=== PATIENT | male | born 1950 | race Caucasian/White ===

== ENCOUNTER 2016-04-26 14:05 | Inpatient (IN) ==
[2016-04-26] MEDS ORDERED: ALUM/MAG/SIMETH/LIDO VISC 1:1 30 ML BOTTLE PO STA (15:12)
[2016-04-26] MEDS ORDERED: ASPIRIN 325 MG TABLET PO STA (15:12)
[2016-04-26] MEDS ORDERED: METOPROLOL TARTRATE 25 MG TABLET PO STA (15:12)
[2016-04-26] MEDS ORDERED: MORPHINE 2 MG/1 ML SYRINGE IV STA (15:12)
[2016-04-26] MEDS ORDERED: NITROGLYCERIN 2% OINT 1 INCH/GM PACK TOP STA (15:12)
[2016-04-26] MEDS ORDERED: ONDANSETRON 4 MG/2 ML VIAL IV STA (15:12)
--- NOTE | 2016-04-26 15:18 | EKG Report ---
Stationary ECG Study [facility] ER Test Date: 04/26/2016 2:12:17 PM Pat Name: KAEL AVILES Department: Room: Gender: M Store Director: : 1950 Requested by: Andre Whitehead Order Number: [id number] Reading MD: BUCK NOEL Intervals [place] Rate: 67 P: 55 OK: 163 QRS: -30 QRSD: 106 T: 31 QT: 380 QTc: 395 Interpretive Statements SINUS RHYTHM MODERATE LEFT AXIS DEVIATION Electronically Signed On 04-26-16 17:31:47 HOUSE MOVER by BUCK NOEL [email or web address]
--- NOTE | 2016-04-26 15:25 | Emergency Department Note ---
IMagda Gwan, am scribing for, and in the presence of, Andre Pop MD 15 :10. IKiesha Charles R, MD, personally performed the services described in this documentation, ascribed by Ebony Man in my presence, and it is both accurate and complete 525 . Arrival - Arrival Chief Complaint: Chest Pain Stated Complaint: tightness in chest/sob/pain in left arm ED Nursing Triage Note: reports tightness in his chest that comes and goes since monday. reports did not feel well yesterday and went to work yesterday and started having worse tightness when he would climb stairs. frank sob or diaphoresis or nausea. has a hx of stents three years ago Mode of Arrival: Ambulatory Limitations: No Limitations Source: Patient, Old Records Reviewed, RN Notes Reviewed Time Seen by Provider: 04/26/16 14:48 - History of Present Illness HPI Narrative: Pt is a 65 y/o male, with a hx of Stent placed 06/2011 at [facility], who presents to the ED with a c/o tightness in his chest with an onset three days ago. Patient stated that his pain as been intermittent since onset but today as he was climbing up and down some stairs his sxs began to worsen prompting his visit to the ED today. Patient stated that he also has had some pain in his arm and that he is followed by the physicians at [facility]. He noted that his discomfort now is similar to what he felt when he received his stent. During exam, pt stated that on a scale of 1-10 he is now having a 2 in pain. No other problems/complaints reported in ED. Onset (ago): day(s) Consistency: intermittent Severity: mild Allergies/Adverse Reactions: Allergies Allergy/AdvReac Type Severity Reaction Status Date / Time No Known Allergies Allergy Unverified 04/26/16 14:16 Home Medications: Home Medications Medication Instructions Recorded Confirmed Type Aspirin [Ecotrin] 325 mg PO DAILY 04/26/16 04/26/16 History Gluc Pina/Chondro Pina A/Vit C/Mn 1 each PO BID 04/26/16 04/26/16 History [Glucosamine Chondroitin Tab] Multivitamin [Multivitamins] 1 each PO DAILY 04/26/16 04/26/16 History Simvastatin 40 mg PO BEDTIME 04/26/16 04/26/16 History Review of System - Review of System 12 point system: reviewed and no additional remarkable complaints except as stated - Review of System Cardiovascular: Present: as per HPI, chest pain (tightness in chest) Musculoskeletal: Present: as per HPI, arm pain (pain in arm) Medical,Surgical,& Family Hx - Surgical History Cardiac Surgeries: Sugical HX of: Cardiac Catheterization (stents 3 years ago) - Social History Smoking Status: Never smoker Exam Vital Signs: Vital Signs Temperature 97.8 F 04/26/16 14:13 Pulse Rate 67 04/26/16 14:46 Respiratory Rate 14 04/26/16 14:46 Blood Pressure 120/67 04/26/16 14:46 O2 Sat by Pulse Oximetry 98 04/26/16 14:46 - General General appearance: alert, in no apparent distress - Head Head exam: Present: atraumatic, normocephalic - Eye Eye exam: Present: normal appearance, PERRL, EOMI - ENT ENT exam: Present: normal exam, normal oropharynx, mucous membranes moist, TM's normal bilaterally, normal external ear exam - Neck Neck exam: Present: full ROM, trachea midline. Absent: tenderness, meningismus , lymphadenopathy, thyromegaly - Chest Chest inspection: Present: symmetric chest wall rise. Absent: tenderness - Respiratory Respiratory exam: Present: normal lung sounds bilaterally. Absent: respiratory distress - Cardiovascular Cardiovascular exam: Present: regular rate, normal rhythm, normal heart sounds. Absent: murmur, rubs, gallop - Abdominal Exam Abdominal exam: Present: soft, normal bowel sounds. Absent: distention, tenderness, guarding - Extremities Exam Extremities exam: Present: full ROM. Absent: tenderness, pedal edema, calf tenderness - Back Exam Back exam: Present: full ROM. Absent: tenderness - Neurological Exam Neurological exam: Present: alert, oriented X3, CN II-XII intact. Absent: motor sensory deficit - Psychiatric Psychiatric exam: Present: normal affect, normal mood - Skin Skin exam: Present: warm, dry, intact, normal color Course - Consultations Consultation #1: Dr. Bowling will admit patient Time: 16:04 Results - Labs CBC & BMP: 04/26/16 14:33 04/26/16 14:33 Lab Results: I have reviewed the patients labs Critical Care Time Critical Care Time: Yes Total Critical Care Time: 60 Disposition Clinical Impression: Chest pain, Elevated troponin, Unstable angina pectoris Case discussed with: patient Disposition: Still a Patient Condition: Stable Time of Disposition: 16:05
[2016-04-26 15:27] LABS: Basophils % 0.5 % (0.0-0.8); Eosinophils # 0.1 10*3/uL (0.0-0.87); Eosinophils % 2.2 % (0.00-10.9); Hematocrit 44.5 VOL% (42.0-52.0); Hemoglobin 15.2 GM/DL (14.0-18.0); Immature Granulocytes % 0.3 %; Immature Granulocytes Absolute 0.02 #; Lymphocytes # 1.4 10*3/uL (1.4-4.0); Mean Corpuscular HGB Conc 34.2 GM/DL (32-36); Mean Corpuscular Hemoglobin 32 PG (27-34); Mean Corpuscular Volume 92.1 FL (87-102); Mean Platelet Volume 9.7 FL (9.6-12.0); Monocytes # 0.5 10*3/uL (0.11-0.8); Monocytes % 8.3 % (1.7-12.7); Neutrophils # 4.4 10*3/uL (1.4-7.4); Neutrophils % 67.7 % (38.7-73.9); Platelet Count 227 10*3/uL (130-400); Red Blood Count 4.83 10*6/uL (3.8-5.5); Red Cell Distribution Width 12.8 % (9.3-17.3); White Blood Count 6.5 10*3/uL (4.5-13.71)
[2016-04-26 15:35] LABS: Bilirubin,Total 0.6 MG/DL (0.2-1.0); Calcium 9.1 MG/DL (8.5-10.1); Magnesium 2.4 MG/DL (1.8-2.4); Osmolality,Calculated 283.1 MOS/KG (273-304); Potassium 4.1 MMOL/L (3.5-5.1); Total Protein 7.5 G/DL (6.4-8.3)
--- NOTE | 2016-04-26 15:36 | XRay Report ---
Referring Physician: Andre Pop Exam: XR chest 1V portable Date: April 26, 2016 at 3:07 PM Reason: Chest pain Comparison: None Findings: The cardiac silhouette is normal in size. No focal consolidation, pneumothorax or pleural fluid is identified. No acute osseous process is seen. Impression: No acute cardiopulmonary process is identified. PROCEDURE INTERPRETED AT [facility] DEPARTMENT OF RADIOLOGY Final Report Signed by: Dr. Mike Blake
[2016-04-26 15:41] LABS: D-Dimer <= 0.5 MG/L FEU; PT Patient Result 10.6 SECS
[2016-04-26] MEDS ORDERED: METOPROLOL TARTRATE 25 MG TABLET ONE (15:58)
[2016-04-26] MEDS ORDERED: NITROGLYCERIN 2% OINT 1 INCH/GM PACK TOP ONE (15:58)
[2016-04-26] MEDS ORDERED: ASPIRIN 325 MG TABLET ONE (15:59)
[2016-04-26] MEDS ORDERED: ALUM/MAG/SIMETH/LIDO VISC 1:1 30 ML BOTTLE PO ONE (15:59)
[2016-04-26] MEDS ORDERED: MORPHINE 2 MG/1 ML SYRINGE ONE (15:59)
[2016-04-26] MEDS ORDERED: ENOXAPARIN 100 MG/ML SYRINGE SUBCUT STA (16:02)
[2016-04-26] MEDS ORDERED: ONDANSETRON 4 MG/2 ML VIAL ONE (16:29)
[2016-04-26] MEDS ORDERED: ENOXAPARIN 100 MG/ML SYRINGE SUBCUT ONE (16:29)
[2016-04-26] MEDS ORDERED: MAGNESIUM SULF RIDER 2 GM in PREMIX 1 EACH IV PRN ×2 (17:24→17:54)
[2016-04-26] MEDS ORDERED: POTASSIUM CHLORIDE RIDER 10 MEQ in PREMIX 1 EACH IV PRN (17:24)
--- NOTE | 2016-04-26 17:24 | Cardiology History & Physical ---
Assessment and Plan (1) Dyslipidemia Status: Acute Assessment and plan: We'll continue his simvastatin follow-up on his lipids tomorrow. Current Visit: Yes (2) Elevated troponin Status: Acute Assessment and plan: This is minimal but may be indicative of some underlying ischemic heart disease. Current Visit: Yes (3) Unstable angina pectoris Status: Acute Assessment and plan: He has known coronary disease and now is having exertional angina and rest angina. We'll plan on cart catheterization tomorrow by Dr. Majano. Current Visit: Yes (4) Coronary artery disease Status: Acute Assessment and plan: He is had prior stents placed. Now with unstable exertional angina. Current Visit: Yes History of Present Illness Chief complaint: chest pain History of present illness: Mr. White is a 65 year old male who the last 3 days is had episodic chest tightness is accompanied with some shortness of breath. The discomfort would usually radiate to his left arm and sometimes left shoulder. No nausea or diaphoresis with this. He presented emergency room after being at work and going upstairs and the pain recurring. He is taking some extra aspirin daily but is taking no other medications for this. His history is significant in that he is had to stenting procedures. He describes the first being a [address] Félix Jack. He had a second of June [address] Wilson at [facility]. He describes this as having a stent placed inside the stent. An fairly well until recently. He denies other cardiac symptoms of PND or orthopnea. He's had no palpitations and denies syncope or near syncope. He has not been compliant with medical follow-up for his cardiac care. He states that he doesn't have insurance. He is followed at [facility]. In the emergency room his ECG reveals sinus rhythm without acute changes. He does have some left axis deviation but that is mild. His BNP was normal as well as his electrolytes and renal function. Patient with the cardiac catheterization as I discussed with him. I discussed with him the indication procedure as well as how would be carried out in the risk. I discussed cardiac catheterization and percutaneous coronary intervention with the patient. I reviewed with them the indications for the procedure and the basis of how the procedure would be carried out. I also reviewed with him the risk of the procedure which include but not necessarily limited to access site bleeding, bruising, pain, swelling or vascular injury that may require emergency vascular surgery, blood transfusion, or thrombin injection. Also discussed the possibility of stroke, myocardial infarction, arrhythmia which may require electrocardioversion, and the possibility of dye reaction that would require medical therapy. Also discussed the possibility of coronary artery injury, ruptured, closure or perforation that may require emergency bypass surgery. We also discussed the possibility of from a major complication. He voices understanding and agree to proceed. Home Medications Medication Instructions Recorded Confirmed Type Aspirin [Ecotrin] 325 mg PO DAILY 04/26/16 04/26/16 History Gluc Pina/Chondro Pina A/Vit C/Mn 1 each PO BID 04/26/16 04/26/16 History [Glucosamine Chondroitin Tab] Multivitamin [Multivitamins] 1 each PO DAILY 04/26/16 04/26/16 History Simvastatin 40 mg PO BEDTIME 04/26/16 04/26/16 History Allergies Allergy/AdvReac Type Severity Reaction Status Date / Time No Known Allergies Allergy Unverified 04/26/16 14:16 Review of systems: Constitutional: Denies anorexia, chills, fatigue, fever, frequent falls, night sweats, weight gain, weight loss Eyes: Denies visual changes or loss of vision Ears: Denies decreased hearing, vertigo Nose, mouth and throat: Denies dysphagia, epistaxis, headaches, neck pain, tongue swelling, wears dentures Neck: Denies thyromegaly or masses. No stiffness. Cardiovascular: as per HPI Respiratory: Denies cough, dyspnea, hemoptysis, dyspnea on exertion, wheezing, snoring Gastrointestinal: Denies abdominal pain, constipation, dyspepsia, dysphagia, hematemesis, hematochezia, melena, nausea, vomiting Genitourinary: Denies dysuria, hematuria, nocturia Musculoskeletal: Denies arthralgias, joint swelling, muscle weakness, myalgias Neurological: denies abnormal gait, abnormal speech, confusion, convulsions, frequent falls, headaches, memory loss, syncope Psychiatric: Denies anxiety, confusion, depression Endocrine: Denies cold intolerance, fatigue, heat intolerance Hematologic/Lymphatic: Denies easy bleeding, easy bruising Dermatologic: Denies Rash, itching, shingles Medical,Surgical,& Family Hx - Medical History Cardio: History of: CAD Endocrine: History of: Dyslipidemia - Surgical History Cardiac Surgeries: Sugical HX of: Cardiac Catheterization (stents 3 years ago) - Family History Family History: Reports;: Family Heart Disease (mother father and brother with coronary disease.) - Social History Smoking Status: Never smoker Frequency of Alcohol Use: Rarely Cardiology Physical Exam - Constitutional Vitals: Vital Signs Temp Pulse Resp BP Pulse Ox 97.8 F 72 17 145/99 98 04/26/16 14:13 04/26/16 16:38 04/26/16 16:38 04/26/16 16:38 04/26/16 16:38 Exam: General appearance: normal weight, no acute distress Head exam: normal inspection, atraumatic Eye exam: Pupils are equal and reactive. EOMI. There is no trauma. Ear exam: Anatomically normal. Normal auditory acuity to conversation. Oral exam: No significant oral lesions. Neck exam: normal inspection no JVD. No carotid bruit. Trachea is in midline. Respiratory exam: clear to auscultation bilaterally posteriorly and anteriorly with good air movement. No rales, rhonchi or wheezes. Cardiovascular exam: regular rate and rhythm, no murmur or gallop or rub. No precordial lift. No bruits over the major arteries. Chest wall/torso: Anatomically normal. No tenderness, deformity Peripheral Pulses: 2+ throughout. GI/Abdominal exam: normal bowel sounds, soft, no abdominal bruits or pulsatile masses. He does has a very mild direct tenderness without rebound or rigidity or guarding. Musculoskeletal/Extremities exam: normal inspection without edema or cyanosis. No deformities or trauma. Neurological exam: alert, oriented X3. There is no gross neurologic deficits. Psychiatric exam: normal affect, normal mood. Cognitive function is grossly intact. Skin exam: normal color, warm. No rashes or other skin lesions. Result/EKG - Labs CBC & BMP: 04/26/16 14:33 04/26/16 14:33 Lab Results: I have reviewed the past 24 hour labs (troponin 0.176. Chemistries and electrolytes are otherwise normal. CBC is normal.) - Impressions Impressions: ECG with normal sinus rhythm without acute changes. There is mild left axis deviation.
[2016-04-26] MEDS ORDERED: MAGNESIUM SULF RIDER 4 GM in PREMIX 1 EACH IV PRN (17:54)
[2016-04-26] MEDS ORDERED: ONDANSETRON 4 MG/2 ML VIAL IV PRN (17:54)
[2016-04-26] MEDS ORDERED: POTASSIUM CHLORIDE 20 MEQ TABLET PO PRN (17:54)
[2016-04-26] MEDS ORDERED: MORPHINE 2 MG/1 ML SYRINGE IV PRN (17:54)
[2016-04-26] MEDS ORDERED: ENOXAPARIN 100 MG/ML SYRINGE SUBCUT SCH (18:00)
[2016-04-26] MEDS: NITROGLYCERIN 2% OINT 1 INCH/GM PACK TOP SCH (18:14)
[2016-04-26] MEDS: SODIUM CHLORIDE 0.9% 1,000 ML IV SCH (19:08)
[2016-04-26] MEDS ORDERED: NON-FORMULARY MEDICATION (Gluc Su/Chondro Su A/Vit C/Mn [Glucosamine Chondroitin Tab] 1 EA PO SCH (21:00)
[2016-04-26] MEDS: SIMVASTATIN 40 MG TABLET PO SCH (21:22)
[2016-04-27] MEDS: NITROGLYCERIN 2% OINT 1 INCH/GM PACK TOP SCH ×4 (02:29→17:09)
[2016-04-27 05:24] LABS: Basophils % 0.5 % (0.0-0.8); Eosinophils # 0.2 10*3/uL (0.0-0.87); Hemoglobin 13.4 GM/DL (14.0-18.0); Immature Granulocytes % 0.2 %; Immature Granulocytes Absolute 0.01 #; Lymphocytes # 1.4 10*3/uL (1.4-4.0); Lymphocytes % 24.6 % (21.2-54.2); Mean Corpuscular HGB Conc 32.7 GM/DL (32-36); Mean Corpuscular Hemoglobin 30 PG (27-34); Mean Corpuscular Volume 92.1 FL (87-102); Mean Platelet Volume 9.7 FL (9.6-12.0); Monocytes # 0.6 10*3/uL (0.11-0.8); Monocytes % 9.5 % (1.7-12.7); Neutrophils # 3.6 10*3/uL (1.4-7.4); Neutrophils % 61.2 % (38.7-73.9); Platelet Count 201 10*3/uL (130-400); Red Blood Count 4.45 10*6/uL (3.8-5.5); Red Cell Distribution Width 12.9 % (9.3-17.3); White Blood Count 5.8 10*3/uL (4.5-13.71)
[2016-04-27 06:01] LABS: Albumin 3.2 G/DL (3.4-5.0); Bilirubin,Total 0.9 MG/DL (0.2-1.0); Calcium 8.2 MG/DL (8.5-10.1); Magnesium 2.3 MG/DL (1.8-2.4); Osmolality,Calculated 291.4 MOS/KG (273-304); Risk Ratio 5.21; Total Protein 6.3 G/DL (6.4-8.3); VLDL CHOLESTEROL 37.8 MG/DL
[2016-04-27] MEDS ORDERED: HEPARIN/NACL 0.9% 2 UNITS/ML 1,000 ML IV ONE (08:44)
[2016-04-27] MEDS ORDERED: LIDOCAINE 1% 20 ML VIAL ONE (08:44)
--- NOTE | 2016-04-27 08:44 | XRay Report ---
XR chest 2V Indication: Shortness of breath Comparison: 26 April 2016 Findings: The heart and mediastinum are normal in size and configuration. The pulmonary vascularity is normal in caliber. No lung infiltrates, effusions, pneumothorax or other abnormality is demonstrated. Impression: No acute cardiopulmonary disease. PROCEDURE INTERPRETED AT [facility] DEPARTMENT OF RADIOLOGY Final Report Signed by: Dr. Nicholas Caceres
[2016-04-27] MEDS ORDERED: ASPIRIN EC 325 MG TABLET PO SCH ×2 (09:00)
[2016-04-27] MEDS ORDERED: DIAZEPAM 5 MG TABLET PO ONE (09:00)
[2016-04-27] MEDS: SODIUM CHLORIDE 0.9% 1,000 ML IV SCH (09:38)
[2016-04-27] MEDS: PANTOPRAZOLE 40 MG TABLET PO SCH (09:38)
[2016-04-27] MEDS: MULTIVITAMIN (CENTRUM) TABLET PO SCH (09:39)
[2016-04-27] MEDS ORDERED: HYDROmorphone 2 MG/1 ML VIAL ONE (11:26)
[2016-04-27] MEDS ORDERED: MIDAZOLAM 2 MG/2 ML VIAL ONE (11:26)
--- NOTE | 2016-04-27 11:38 | History and Physical Update ---
Sedation H&P Update - History and Physical H&P was reviewed, the patient examined and there: are no changes in the patients condition since last H&P was completed. - Dictation Physical: refer to H&P completed by admitting physician - Physical Exam Mental Status: alert and oriented Heart: regular rate and rhythm Lung: clear to auscultation Abdomen: within normal limits Vitals: within normal limits - Sedation Plan for Sedation: moderate Patient Consent: Procedure disscussed with patient and patinet has consented., Risks and benefits were discussed with patient,including infection,, bleeding, injury to surrounding structures, seizure, temporary nerve, Patient understands and accepts potential risks/benefits and agrees to, proceed. ASA Class: II Airway Assessment: Class II: Soft palate, uvula, fauces visible
[2016-04-27] MEDS ORDERED: BIVALIRUDIN 250 MG VIAL IV ONE (11:53)
[2016-04-27] MEDS ORDERED: diphenhydrAMINE 50 MG/1 ML VIAL ONE (12:10)
[2016-04-27] MEDS ORDERED: BIVALIRUDIN 250 MG in SODIUM CHLORIDE 0.9% 50 ML IV SCH (12:30)
[2016-04-27] MEDS ORDERED: TICAGRELOR 90 MG TABLET ONE (12:48)
[2016-04-27] MEDS ORDERED: ZALEPLON 5 MG CAPSULE PO PRN (13:08)
[2016-04-27] MEDS ORDERED: ACETAMINOPHEN 325 MG TABLET PO PRN (13:08)
[2016-04-27] MEDS ORDERED: NITROGLYCERIN SL 0.4 MG TABLET SL PRN (13:08)
--- NOTE | 2016-04-27 13:08 | Cardiac Catheterization ---
Date of Procedure:: 04/27/16 Pre-op Diagnosis: Chest pain CAD Post-op diagnosis: same Procedure: Cardiac catheterization procedure note #1 left heart catheterization #2 selective coronary angiography #3 left ventriculography #4 successful mid RCA stent Malachishyvickie was used for the procedure Description of procedure Following sterile preparation and draping of the right groin local anesthesia was achieved by infiltration with 1% Xylocaine. Using a Cook needle the right femoral artery was cannulated and a #6 sheath was inserted. A 6 Niuean pigtail catheter was introduced and advanced retrograde across aortic valve into the left ventricle and the end-diastolic pressure was recorded. Left ventriculography was performed the CHEN projection using 24 cc of contrast. A pullback recording was made across aortic valve. The pigtail catheter exchanged for a 6 Niuean left Vaughn catheter and left coronary angiography was performed in several CHEN and VIETNAMESE projections. Catheter change for a 6 Niuean right Amplatz catheter and right coronary angiography was performed in the VIETNAMESE projection only. Exchanged for a 6 Niuean hockey-stick guiding catheter in the right coronary artery was recannulated. The patient was bolused with Angiomax and placed on a standard infusion. The vessel was wired with a Citizengine flex wire. The lesion was predilated 3.0 x 12 mm [place] balloon. The balloon was removed. The vessel was then stented with a 3.25 x 23 mm Alpine Zions drug-eluting stent. Several flush injection confirmed good positioning of the stent. The maximum inflation pressure was 12 and enters for 35 seconds, creating a 3.50 mm lumen. Repeat angiography demonstrated a widely patent vessel with mild residual narrowing, no dissection, and brisk ANAHI-3 flow. The guiding catheter and sheath were removed and the femoral arteriotomy site was sealed with a minx closure device with prompt cessation of bleeding and prompt return of the femoral and foot pulses. The patient was transported back to telemetry in stable condition. Hemodynamic data Aortic pressure 113/52 mean of 81 LV 113/12 Selective coronary angiography The left main trunk is patent and bifurcates. The LAD just reaches the apex. The proximal stent site is patent. The mid LAD has a 40% stenosis after the second diagonal takeoff to diagonal branches have mild disease. The circumflex is small and has mild disease only. The stomach coronary artery has a 95% mid vessel stenosis. The proximal right coronary stent has long 50% in-stent restenosis. Left ventriculography Ejection fraction 60%. No wall motion abnormalities. No mitral regurgitation. Conclusions #1 LVEDP 12 #2 ejection fraction 60% with no wall motion abnormalities #3 no mitral regurgitation #4 no aortic valve gradient #5 left main trunk-patent #6 LAD-patent proximal stent site with 40% mid stenosis after second diagonal branch #7 2 diagonal branches-mild disease only #8 circumflex system-mild diffuse disease #9 dominant right coronary-95% mid vessel stenosis and moderate in-stent proximal restenosis #10 successful mid RCA stent with a 3.25 x 23 mm Alpine Zions drug-eluting stent , postdilated to 14 nic for 35 seconds, creating a 3.50 mm lumen and angioplasty of the proximal RCA stent to a 3.50 mm lumen. Good result obtained. Disposition The patient status post proximal LAD stent and proximal RCA stent. The LAD stent remains patent. There was new severe disease in the mid right coronary which was stented with a 3.25 x 23 mm Alpine Zions drug-eluting stent, postdilated to 3.50 mm lumen. The proximal RCA stent had moderate in-stent restenosis which was angioplastied to 3.50 mm lumen. Good result obtained. Continue normal saline hydration aspirin Brilinta and statin therapy in addition , he will require aggressive lifestyle changes and risk factor modification. Implants: Successful mid RCA stent 3.25 x 23 mm Zions drug-eluting stent, postdilated to 14 nic, creating a 3.50 mm lumen. Good result obtained. Anesthesia: moderate conscious sedation Surgeon / Physician: Gonzalo Majano Estimated blood loss: minimal Specimens: none sent Condition: stable Disposition: floor - Medications / Follow-up
--- NOTE | 2016-04-27 13:38 | EKG Report ---
Stationary ECG Study [facility] Test Date: 04/27/2016 1:37:05 PM Pat Name: KAEL AVILES Department: Room: 292 Gender: M Mate Ship: : 1950 Requested by: Gonzalo Majano Order Number: [id number] Reading MD: GONZALO MAJANO Intervals [place] Rate: 78 P: 56 NM: 187 QRS: -16 QRSD: 102 T: 48 QT: 380 QTc: 413 Interpretive Statements SINUS RHYTHM EARLY LEFT AXISA DEVIATION Electronically Signed On 04-27-16 17:06:42 [employer] MECHANIC by GONZALO MAJANO [email or web address]
--- NOTE | 2016-04-27 15:29 | Discharge Summary ---
<Mohini Dumont E - Last Filed: 04/28/16 16:24> Hospital Course - Hospital Course Hospital Course: Mr. White, 65 year old male, arrived to the emergency department at [facility] 04/26/2016 with complaints of episodic chest tightness accompanied with shortness of breath. This did occasionally radiate to his left arm and sometimes left shoulder. Patient has a known history of coronary artery disease describing his first knowledge of this diagnosis [place] [address] Félix Jack. He was seen and treated by Dr. Moscoso at [facility] in June 2011. In the emergency department patient's EKG revealed sinus rhythm without acute changes. He was housed in our telemetry unit overnight closely monitoring his cardiac biomarkers. His troponin was elevated and peaked at 0.226. Patient was scheduled for, and underwent, elective cardiac catheterization performed by Dr. Majano 04/27/2016. Please see the report for additional information however patient did require PCI of the mid RCA with drug-eluting stent. He tolerated the procedure well without complication and was returned to our telemetry unit in stable condition. Overnight patient did well. Having felt he met maximal medical therapy, patient is being discharged home in stable condition. Patient will be given a one week follow-up appointment with Dr. Bowling. At that visit the following labs will be obtained: BMP, magnesium, CBC. Discharge medications include the following: Aspirin 81 mg orally daily Brilinta 90 mg orally twice a day without fail. Simvastatin 40 mg orally each evening. Pantoprazole 40 mg orally daily. Nitroglycerin sublingual - take as directed as needed Patient's blood pressure would not allow for introduction of an LU inhibitor or a beta tomasa. - Time spent with patient Time with patient DS: Less than 30 minutes Diagnosis - Discharge Diagnosis (1) NSTEMI (non-ST elevated myocardial infarction) Status: Resolved (2) Chest pain Status: Resolved (3) Dyslipidemia Status: Chronic (4) Coronary artery disease Status: Chronic Specialty Discharge - Follow Up or Referrals Follow up with: Kyle Bowling MD [Physician] - 05/05/16 11:00 am (BMp, Mg, CBC - lab work to be drawn 05/03 at 9:00 AM) - Discharge Medications New Aspirin EC Tab 81 mg PO DAILY #30 tablet Nitroglycerin Sl Tab [Nitrostat] 0.4 mg SL Q5M PRN #1 bottle PRN Reason: Chest Pain Pantoprazole Tab [Protonix Tab] 40 mg PO DAILY #30 tablet Ticagrelor [Brilinta] 90 mg PO BID #60 tablet Continue Multivitamin [Multivitamins] 1 each PO DAILY Simvastatin 40 mg PO BEDTIME Gluc Pina/Chondro Pina A/Vit C/Mn [Glucosamine Chondroitin Tab] 1 each PO BID Discontinued Aspirin [Ecotrin] 325 mg PO DAILY Discharge Plan - Discharge Data Disposition: Disch To Home/Self Care Condition at Discharge: Stable Discharge Diet: heart healthy Activity: other (post-cath expectations) Hygiene: other (post-cath expectations) Weight Bearing at Discharge: other (post-cath expectations) Driving: other (post-cath expectations) Contact your physician if you experience:: fever over 101, Difficulty voiding, Redness or swelling, Nausea/Vomiting, Shortness of breath, Bleeding, pain uncontrolled by pain medications - Discharge Medications New Aspirin EC Tab 81 mg PO DAILY #30 tablet Nitroglycerin Sl Tab [Nitrostat] 0.4 mg SL Q5M PRN #1 bottle PRN Reason: Chest Pain Pantoprazole Tab [Protonix Tab] 40 mg PO DAILY #30 tablet Ticagrelor [Brilinta] 90 mg PO BID #60 tablet Continue Multivitamin [Multivitamins] 1 each PO DAILY Simvastatin 40 mg PO BEDTIME Gluc Pina/Chondro Pina A/Vit C/Mn [Glucosamine Chondroitin Tab] 1 each PO BID Discontinued Aspirin [Ecotrin] 325 mg PO DAILY - Follow Up or Referral Follow Up: Kyle Bowling MD [Physician] - 05/05/16 11:00 am (BMp, Mg, CBC - lab work to be drawn 05/03 at 9:00 AM) - Forms/Instructions Instructions: Coronary Artery Disease (GEN), Left Heart Catheterization (DC), Heart Healthy Diet (GEN), Coronary Intravascular Stent Placement, Quality Control Microbiologist (GEN) Exam - Constitutional Vitals: Period Temp Pulse Resp BP Sys/Palomares Pulse Ox Last 24 Hr 98 F-100.7 F 74-87 18-20 95-159/66-93 95-97 Exam: General: Appears well with no apparent distress. Pleasant and cooperative. Appears comfortable. HEENT: PERRL, normocephalic, atraumatic. Mucous membranes moist. No jaundice noted. Conjunctiva moist and clear, sclerae anicteric Neck: No JVD/HJR, no thyromegaly or lymphadenopathy noted. No carotid bruit appreciated Cardiac: Regular rate and rhythm. No murmur rub or gallop. Lungs: Clear to auscultation without accessory muscle use to assist the respiratory pattern. Not requiring oxygen Abdomen: Soft, bowel sounds normoactive. Nontender and nondistended. No abdominal bruit or thrill noted. No masses noted. Musculoskeletal: No fluid collection. Decreased range of motion is noted. Extremities: Right groin reveals no evidence of hematoma or bruit. No clubbing , cyanosis noted. No edema noted. Upper extremity pulses 2+. Lower extremity pulses 2+. Capillary refill less than 3 seconds. Skin: No unusual lesions or rashes. No skin breakdown appreciated. Neuro: Awake, alert and oriented 3. Moves all extremities well without hemiparesis or paralysis. No essential tremor is appreciated. Discharge Results Labs on day of discharge: Labs from last 24 hours 04/28/16 04:03 Sodium 145 Potassium 3.9 Chloride 109 H Carbon Dioxide 26 Anion Gap 13.9 BUN 14 Creatinine 0.80 GFR Calculation 113 BUN/Creatinine Ratio 17.00 Glucose 97 Calculated Osmolality 288.7 Calcium 8.3 L Total Creatine Kinase 66 CK-MB (CK-2) 1.6 Troponin I 0.664 H D - Imaging and Cardiology Cardiology Procedure: report reviewed by Procedure: Chest x-ray: report reviewed by DS: Provider Date of admission: 04/26/16 16:06 Primary care physician: . No PCP Attending physician on admission: Miah Avalos Consults: 04/27/16 13:08 Consult to Cardiac Rehabilitation [CONS] Routine Reason for Cardiac Rehabilitation: Risk Factor Modification Discharging clinician: Mohini Dumont NP Expected date of discharge: 04/28/16 <Kyle Bowling - Last Filed: 04/28/16 17:18> Diagnosis - Discharge Diagnosis (1) Dyslipidemia Status: Chronic (2) Elevated troponin Status: Acute (3) Unstable angina pectoris Status: Acute (4) Coronary artery disease Status: Chronic
--- NOTE | 2016-04-27 17:38 | ECHO Report ---
[place] Exam Date: 04/27/2016 16:00 Referring Physician: Technologist: Huey MITCHELL Age: 65 Ht (in): Wt (lb): Gender: M Exam Location: [facility] Echo Indications: post cath stent, chest pain, elevated troponin, unstable angina pectoris, dyslipidemia, CAD, NSTEMI BP: / HR: Rhythm: Technical Quality: IMPRESSIONS Left ventricular ejection fraction is estimated at 60 %. Grade I/IV diastolic dysfunction (abnormal relaxation filling pattern), normal to mildly elevated filling pressures. Mildly increased right ventricular size. Normal right atrial size. Normal left atrial size. Mildly thickened mitral valve. Trace mitral valve regurgitation. Aortic valve sclerosis. No aortic valve regurgitation. Mild tricuspid valve regurgitation. [id number]. Morphologically normal pulmonic valve. No pericardial effusion. Normal size aortic root and proximal ascending aorta. MEASUREMENTS (Male / Female) Normal Values 2D ECHO LV Diastolic Diameter PLAX 4.6 cm 4.2 - 5.9 / 3.9 - 5.3 cm LV Systolic Diameter PLAX 3.4 cm LV Fractional Shortening PLAX 26.1 % IVS Diastolic Thickness 1.4 cm 0.6 - 1.0 / 0.6 - 0.9 cm LVPW Diastolic Thickness 1.2 cm 0.6 - 1.0 / 0.6 - 0.9 cm RV Internal Dim ED PLAX 3.4 cm Aortic Root Diameter 2.6 cm LA Systolic Diameter LX 3.9 cm 3.0 - 4.0 / 2.7 - 3.8 cm DOPPLER TR Peak Velocity 193.0 cm/s TR Peak Gradient 14.9 mmHg FINDINGS Left Ventricle Left ventricular ejection fraction is estimated at 60 %. Grade I/IV diastolic dysfunction (abnormal relaxation filling pattern), normal to mildly elevated filling pressures. Right Ventricle Mildly increased right ventricular size. Right Atrium Normal right atrial size. Left Atrium Normal left atrial size. Mitral Valve Mildly thickened mitral valve. Trace mitral valve regurgitation. Aortic Valve Aortic valve sclerosis. No aortic valve regurgitation. Tricuspid Valve Morphologically normal tricuspid valve. Mild tricuspid valve regurgitation. [id number]. Pulmonic Valve Morphologically normal pulmonic valve. Pericardium No pericardial effusion. Aorta Normal size aortic root and proximal ascending aorta. Ko Majano (Electronically Signed) Final Date: 27 April 2016 17:37
[2016-04-27] MEDS: SIMVASTATIN 40 MG TABLET PO SCH (21:13)
[2016-04-27] MEDS: TICAGRELOR 90 MG TABLET PO SCH (21:13)
[2016-04-28] MEDS: NITROGLYCERIN 2% OINT 1 INCH/GM PACK TOP SCH ×3 (02:49→15:08)
[2016-04-28 05:20] LABS: Blood Urea Nitrogen 14 MG/DL (7-18); Calcium 8.3 MG/DL (8.5-10.1); Glucose 97 MG/DL (74-106); Osmolality,Calculated 288.7 MOS/KG (273-304); Potassium 3.9 MMOL/L (3.5-5.1); Sodium 145 MMOL/L (136-145)
[2016-04-28 06:00] LABS: Troponin I Only 0.664 NG/ML (0.00-0.045)
[2016-04-28] MEDS ORDERED: ASPIRIN EC 81 MG TABLET PO SCH (09:00)
[2016-04-28] MEDS: PANTOPRAZOLE 40 MG TABLET PO SCH (09:16)
[2016-04-28] MEDS: MULTIVITAMIN (CENTRUM) TABLET PO SCH (09:16)
[2016-04-28] MEDS: TICAGRELOR 90 MG TABLET PO SCH (09:17)
[2016-04-28 16:21] VITALS: BP 135/84
== END 2016-04-28 18:45 | disposition home or self-care (01) | DRG 247 ==
LOC: N.ED 14:05 → N.EDINP 16:06 → N.TELEN 16:51
PROVIDERS: ADMIT Internal Medicine Cardiovascular Disease; ATTEND Internal Medicine Cardiovascular Disease
PROC: CLCCHCL (ICD-10-PCS; 2016-04-27 10:45)